=== PATIENT | female | born 1990 | race American Indian/Alaskan Native ===

== ENCOUNTER 2017-12-05 15:49 | Inpatient (IN) | payer MEDICAID, OTHER ==
[2017-12-05] MEDS ORDERED: PEPCID IV ONE (17:56)
[2017-12-05] MEDS ORDERED: REGLAN IV ONE (17:56)
[2017-12-05] MEDS ORDERED: BICITRA PO ONE (17:56)
[2017-12-05] MEDS ORDERED: PITOCin/NS 20 UNIT/1000ML DRIP 20 UNITS/1,000 ML BAG IV SCH ×2 (18:00→22:00)
[2017-12-05] MEDS ORDERED: ANCEF/STERILE WATER 2 GM/20 ML 2 GM/20 ML SYRINGE IV NR (18:00)
[2017-12-05] MEDS ORDERED: LACTATED RINGERS 1,000 ML IV ONE (18:00)
[2017-12-05] MEDS ORDERED: LACTATED RINGERS 1,000 ML IV SCH (18:00)
[2017-12-05 18:05] LABS: Basophils # (Auto) 0.1 K/mm3 (0.0-0.1); Basophils % (Auto) 0.6 % (0.0-1.8); Eosinophils # (Auto) 0.1 K/mm3 (0.0-0.4); Eosinophils % (Auto) 0.7 % (0.0-4.3); Hematocrit 39.3 % (30.3-42.9); Lymphocytes % (Auto) 22.5 % (13.4-35.0); Mean Corpuscular HGB Conc 36 % (30-34); Mean Corpuscular Hemoglobin 33 pg (28-32); Mean Corpuscular Volume 92 fl (79-97); Monocytes # (Auto) 0.8 K/mm3 (0.0-0.8); Monocytes % (Auto) 9.3 % (0.0-7.3); Platelet Count 176 K/mm3 (140-440); Red Blood Count 4.27 M/mm3 (3.65-5.03); Red Cell Distribution Width 15.8 % (13.2-15.2)
--- NOTE | 2017-12-05 18:13 | History and Physical Report ---
History of Present Illness Date of examination: 12/05/17 Chief complaint: Painful contractions History of present illness: 27-year-old at 39+2 weeks presents with painful contractions, she is a [employer]PER[employer] patient. Patient with history of prior desires repeat, she is having painful contractions. Past History Past Medical History: no pertinent history Past Surgical History: section BENEFITS TECHNICIAN History: denies: chlamydia, gonorrhea, hepatitis B, hepatitis C, herpes, HIV , trichomonas Social history: single, full code. denies: smoking, alcohol abuse, IV drug use - Obstetrical History Expected Date of Delivery: 12/10/17 Actual Gestation: 39 Week(s) 2 Day(s) : 3 Para: 1 Medications and Allergies Allergies Allergy/AdvReac Type Severity Reaction Status Date / Time No Known Allergies Allergy Verified 01/28/14 13:19 Home Medications Medication Instructions Recorded Confirmed Last Taken Type No Known Home Medications [No 12/05/17 12/05/17 Unknown History Reported Home Medications] Active Meds: Active Medications Lactated Ringer's (Lactated Ringers) 1,000 mls @ 999 mls/hr IV BOLUS ONE Stop: 12/05/17 19:00 Cefazolin Sodium (Ancef/Sterile Water 2 Gm/20 Ml) 2 gm in 20 mls @ 80 mls/hr IV PREOP NR; Protocol Stop: 12/05/17 23:59 Lactated Ringer's (Lactated Ringers) 1,000 mls @ 2,250 mls/hr IV PREOP MAX Stop: 12/06/17 18:27 Oxytocin/Sodium Chloride (Pitocin/Ns 20 Unit/1000ml Drip) 20 units in 1,000 mls @ 0 mls/hr IV TITR MAX Review of Systems Constitutional: no fever, no chills, no fatigue, no weakness Cardiovascular: no chest pain, no orthopnea, no syncope, no lightheadedness, no shortness of breath, no dyspnea on exertion, no high blood pressure Respiratory: no cough, no cough with sputum, no shortness of breath, no dyspnea on exertion Gastrointestinal: no abdominal pain, no nausea, no vomiting Genitourinary: contractions, no vaginal bleeding, no vaginal discharge, no leakage of fluid - Vital Signs Vital signs: Vital Signs Pulse BP 77 122/69 12/05/17 16:44 12/05/17 16:44 Temp Pulse Resp BP Pulse Ox 77 122/69 12/05/17 16:44 12/05/17 16:44 - Physical Exam Cardiovascular: Regular rate, Normal S1, Normal S2 Lungs: Positive: Clear to auscultation, Normal air movement Abdomen: Positive: normal appearance, soft. Negative: distention, tenderness, guarding, rigidity Genitourinary (Female): Positive: normal external genitalia Uterus: Positive: enlarged (EFW ~ 3600) Adnexa: both: normal Extremities: Positive: normal - Obstetrical FHR: category 1 Cervical Dilatation: 1 (per RN) Results Result Diagrams: 12/05/17 17:47 Abnormal lab results 12/05/17 Range/Units 17:47 MCH 33 H (28-32) pg MCHC 36 H (30-34) % RDW 15.8 H (13.2-15.2) % Sullivan % (Auto) 9.3 H (0.0-7.3) % All other labs normal. Assessment and Plan A: 37-year-old at 39+2 weeks with painful contractions desires repeat C- section -Cat 1 tracing P: -Admit -Obtain routine labs -She has been conented -Proceed with repeat LTCS once OR available - Patient Problems (1) 39 weeks gestation of Current Visit: Yes Status: Acute (2) History of delivery Current Visit: Yes Status: Acute (3) Uterine contractions during Current Visit: Yes Status: Acute
[2017-12-05] MEDS ORDERED: EMLA TP PRN (18:16)
[2017-12-05] MEDS ORDERED: MORPHINE ONE (19:59)
[2017-12-05] MEDS ORDERED: TORADOL ONE (20:26)
[2017-12-05] MEDS ORDERED: VERSED ONE (21:04)
--- NOTE | 2017-12-05 21:34 | Operative Report ---
Operative Report Operative Report: DATE: 12/05/2017 PREOPERATIVE DIAGNOSIS: 27-year-old at 39+2 weeks, prior desires repeat, active labor POSTOP DIAGNOSIS: As above NAME OF PROCEDURE: Repeat low transverse section SURGEON: LUPE BALDWIN MD OUTSIDE MACHINIST HELPER: Shanda ANESTHESIA: Combined spinal epidural EBL: 7 50 mL PATHOLOGY SPECIMEN: None URINE OUTPUT: 75 mL FINDINGS: Female infant in cephalic presentation, impacted, time of delivery 20: 30, infant weight 7 lbs. 2 oz. or 3221 grams, Apgars 8 and 9, normal uterus tubes and ovaries bilaterally, Adhesions DESCRIPTION OF PROCEDURE: She was taken to the operating room where she was prepped and draped in a sterile fashion, she was placed in the dorsal supine position. Pfannenstiel incision was performed through her prior incisional scar which was carried through to underlying rectus fascia which was scored in the midline. The fascial incision was extended laterally with use of Savage scissors, the anterior leaf was then grasped with Kochers forceps elevated dissected sharply and bluntly off the underlying rectus in a similar fashion inferior leaf was grasped elevated dissected sharply and bluntly off the underlying rectus. The rectus was in the midline, good visualization of bladder was noted. A bladder blade was placed in the patient's pelvic cavity ; bladder flap could not be created. A hysterotomy incision was then performed high in the lower segment with clear amniotic fluid noted, hysterotomy incision was extended laterally with the use of fingers manually. in cephalic presentation was delivered in the usual manner; cord was clamped and cut infant was handed over to waiting nursery staff. The placenta was then delivered manually intact, the uterus was exteriorized cleared of all clots and debris. Hysterotomy incision was then closed in a running locked fashion with 0 Vicryl on a CTX; using the same suture we imbricated the initial layer. Interrupted [id number] stitches were used to obtain hemostasis. Uterus was then returned to the patient's pelvic cavity; peritoneal edges were grasped with hemostats and Jazmine's elevated copious irrigation was used to clear the gutters of all clots and debris. Tercel hemostatic agent was then applied to the hysterotomy incision as a means to prevent future bleeding. The peritoneal layer was then closed in a running fashion with 3-0 Vicryl and the rectus was reapproximated with a single [id number] stitch. The fascia was closed in a running fashion with 0 Vicryl and tied in the opposite side. The subcutaneous layer was irrigated and then reapproximated with interrupted [id number] stitches. The skin was closed in a subcuticular manner with 4-0 Vicryl. She tolerated the procedure well lap and instrument counts were correct 2 she did receive 2 g of Ancef prior to incision she is transferred to PACU in stable condition thank you.
[2017-12-05] MEDS ORDERED: MYLICON PO PRN (21:35)
[2017-12-05] MEDS ORDERED: ZOFRAN IV PRN ×2 (21:35→21:41)
[2017-12-05] MEDS ORDERED: ANUCORT-HC PR PRN (21:35)
[2017-12-05] MEDS ORDERED: SENOKOT PO PRN (21:35)
[2017-12-05] MEDS ORDERED: NARCAN 0.4 MG/1 ML IV PRN ×2 (21:35→21:41)
[2017-12-05] MEDS ORDERED: MILK OF MAGNESIA PO PRN (21:35)
[2017-12-05] MEDS ORDERED: LANSINOH TP PRN (21:35)
[2017-12-05] MEDS ORDERED: TYLENOL PO PRN (21:35)
[2017-12-05] MEDS ORDERED: TUCKS PAD TP PRN (21:35)
[2017-12-05] MEDS ORDERED: PHENERGAN PO PRN (21:41)
[2017-12-05] MEDS ORDERED: PHENERGAN PR PRN (21:41)
--- NOTE | 2017-12-05 21:41 | Anesthesia Consultation ---
Anesthesia Consult and Med Hx Date of service: 12/05/17 - Airway Anesthetic Teeth Evaluation: Good ROM Head & Neck: Adequate Mental/Hyoid Distance: Adequate Mallampati Class: Class II Intubation Access Assessment: Good - Pulmonary Exam CTA: Yes - Cardiac Exam Cardiac Exam: No Murmur - Pre-Operative Health Status ASA Pre-Surgery Classification: ASA2 Proposed Anesthetic Plan: Epidural - Pulmonary Hx Asthma: No COPD: No Hx Pneumonia: No - Cardiovascular System Hx Hypertension: No Hx Heart Attack/AMI: No Hx Pacemaker: No - Central Nervous System Hx Seizures: No Hx Psychiatric Problems: No - Endocrine Hx Renal Disease: No Hx End Stage Renal Disease: No Hx Liver Disease: No Hx Hypothyroidism: No Hx Hyperthyroidism: No - Hematic Hx Anemia: No Hx Sickle Cell Disease: No - Other Systems Hx Alcohol Use: No
--- NOTE | 2017-12-05 21:41 | Post Anesthesia Evaluation ---
- Post Anesthesia Evaluation Patient Participated: Yes Airway Patent: Yes Stable Respiratory Function: Yes Nausea/Vomiting: No Temp > 96.8F: Yes Pain Manageable: Yes Adequeate Hydration: Yes Anesthesia Complications: No Block Receding Appropriately: Yes
[2017-12-05] MEDS ORDERED: fentaNYL-BUPIV 2 MCG/ML-0.125% 200 MCG/100 ML BAG EPIDURAL SCH (22:00)
[2017-12-05] MEDS ORDERED: SODIUM CHLORIDE FLUSH SYRINGE 10 ML IV NR ×2 (22:00)
[2017-12-05] MEDS: TORADOL IV PRN (22:16)
[2017-12-06] MEDS: D5LR 1,000 ML IV SCH ×2 (05:19→05:20)
[2017-12-06] MEDS: TORADOL IV PRN (05:20)
[2017-12-06 10:02] LABS: Hematocrit 32.3 % (30.3-42.9); Hemoglobin 11.4 gm/dl (10.1-14.3)
[2017-12-06] MEDS: FEOSOL PO SCH (10:42)
[2017-12-06] MEDS: PRENATAL VITAMIN PO SCH (10:42)
--- NOTE | 2017-12-06 11:52 | Progress Note ---
Assessment and Plan A: /postop day 1 S/P repeat low transverse section. P: Encouraged ambulation today. Subjective - Subjective Date of service: 12/06/17 Principal diagnosis: /postop day 1 S/P repeat low transverse section Interval history: /postop day 1 S/P repeat low transverse section. Doing well. Patient reports small amount of lochia. Ambulating well. + flatus. Patient denies headache, cough, shortness of breath, chest pain, abdominal pain , leg pain, heavy bleeding, or symptoms of depression. Patient reports: appetite normal, voiding normally, pain well controlled, flatus , ambulating normally [place]: doing well Objective - Vital Signs Latest vital signs: Vital Signs Temp Pulse Resp BP BP Pulse Ox 12/06/17 11:42 98.2 F 86 20 106/56 96 12/06/17 07:42 98.0 F 83 20 101/57 97 12/06/17 02:15 97.9 F 84 18 114/63 12/06/17 00:00 98.7 F 67 16 107/68 12/05/17 22:50 79 14 111/52 98 12/05/17 22:49 83 12 111/52 97 12/05/17 22:45 81 26 H 111/52 97 12/05/17 22:40 86 12 122/58 98 12/05/17 22:39 98.3 F 12/05/17 22:35 92 H 11 L 117/60 98 12/05/17 22:30 82 15 117/60 98 12/05/17 22:25 92 H 14 116/68 99 12/05/17 22:20 91 H 15 115/64 98 12/05/17 22:15 88 15 117/73 97 12/05/17 22:10 90 13 111/71 99 12/05/17 22:05 82 15 113/62 99 12/05/17 22:01 88 13 116/51 99 12/05/17 21:55 94 H 11 L 98/71 100 12/05/17 21:51 85 12 112/61 100 12/05/17 21:50 80 14 112/61 99 12/05/17 21:45 78 12 109/55 99 12/05/17 21:40 100 12/05/17 21:39 98.7 F 79 12 106/55 99 12/05/17 21:36 100 12/05/17 21:32 100 12/05/17 20:36 68 129/79 12/05/17 16:44 77 122/69 Intake and Output 12/05/17 12/06/17 12/06/17 23:59 07:59 15:59 Intake Total 1300 2.083 Balance 1300 2.083 Intake: IV 1300 2.083 D5lr 1,000 ml @ 125 mls/ 2.083 hr IV DIRECT MAX Rx#: [id number] Other: Weight 97.069 kg - Exam Breasts: Present: deferred Cardiovascular: Present: Regular rate, Normal S1, Normal S2 Lungs: Present: Clear to auscultation Abdomen: Present: normal appearance, normal bowel sounds. Absent: soft, distention, tenderness, guarding, rigidity Uterus: Present: normal, firm, fundal height below umbilicus. Absent: bogginess , tenderness Incision: Present: normal, dry, intact, dressed - Labs Labs: Abnormal lab results 12/05/17 Range/Units 17:47 MCH 33 H (28-32) pg MCHC 36 H (30-34) % RDW 15.8 H (13.2-15.2) % [place] % (Auto) 9.3 H (0.0-7.3) %
[2017-12-06] MEDS: BENADRYL PO PRN ×2 (12:19→18:50)
[2017-12-06] MEDS ORDERED: NORCO 5/325 PO PRN (15:07)
[2017-12-06] MEDS: PERCOCET 5/325 PO PRN ×2 (15:40→21:41)
[2017-12-06] MEDS ORDERED: BOOSTRIX IM ONE (21:36)
[2017-12-06] MEDS ORDERED: M-M-R II VACCINE SUB-Q ONE (21:36)
[2017-12-07] MEDS: FEOSOL PO SCH (09:09)
[2017-12-07] MEDS: PERCOCET 5/325 PO PRN ×2 (09:10→21:58)
[2017-12-07] MEDS: PRENATAL VITAMIN PO SCH (09:10)
[2017-12-07] MEDS: MOTRIN PO PRN ×2 (09:10→16:35)
--- NOTE | 2017-12-07 18:51 | Progress Note ---
Assessment and Plan A: /postop day 2 S/P LTCS. P: CBC, urinalysis (had mild temp. elevation today). Will consult with MD regarding this pt. Anticipate discharge tomorrow. Subjective - Subjective Date of service: 12/07/17 Principal diagnosis: /postop day 2 S/P repeat low transverse section Interval history: /postop day 2 S/P repeat low transverse section. Doing well. Patient reports small amount of lochia. Ambulating well. + flatus. Tolerating a regular diet. Patient denies headache, cough, shortness of breath, chest pain, abdominal pain , leg pain, heavy bleeding, or symptoms of depression. Patient reports: appetite normal, voiding normally, pain well controlled, flatus , ambulating normally : doing well Objective - Vital Signs Latest vital signs: Vital Signs Temp Pulse Resp BP Pulse Ox 12/07/17 16:35 18 12/07/17 09:10 18 12/07/17 09:00 99.1 F 12/07/17 08:58 100.1 F H 91 H 20 107/56 96 12/07/17 01:00 98.7 F 66 16 102/74 - Exam Breasts: Present: deferred Cardiovascular: Present: Regular rate, Normal S1, Normal S2 Lungs: Present: Clear to auscultation Abdomen: Present: normal appearance, soft, normal bowel sounds. Absent: distention, tenderness, guarding, rigidity Uterus: Present: normal, firm, fundal height below umbilicus. Absent: bogginess , tenderness Extremities: Present: normal. Absent: tenderness, edema Incision: Present: normal, dry, intact, dressed
[2017-12-07 20:59] LABS: Basophils % (Auto) 0.2 % (0.0-1.8); Eosinophils # (Auto) 0.2 K/mm3 (0.0-0.4); Eosinophils % (Auto) 1.5 % (0.0-4.3); Hematocrit 31.8 % (30.3-42.9); Hemoglobin 11.1 gm/dl (10.1-14.3); Lymphocytes # (Auto) 1.8 K/mm3 (1.2-5.4); Lymphocytes % (Auto) 15.8 % (13.4-35.0); Mean Corpuscular HGB Conc 35 % (30-34); Mean Corpuscular Hemoglobin 32 pg (28-32); Mean Corpuscular Volume 92 fl (79-97); Monocytes # (Auto) 1.1 K/mm3 (0.0-0.8); Platelet Count 172 K/mm3 (140-440); Red Blood Count 3.45 M/mm3 (3.65-5.03); Red Cell Distribution Width 15.9 % (13.2-15.2)
[2017-12-07 21:12] LABS: Bacteria,Urine 1+ /HPF (Negative); Bilirubin,Urine NEG (Negative); Blood,Urine MOD (Negative); Color,Urine Yellow (Yellow); Mucus,Urine FEW /HPF
--- NOTE | 2017-12-08 09:44 | Progress Note ---
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 Subjective - Subjective Date of service: 12/08/17 Principal diagnosis: s/p Repeat LTCS, POD 3 Patient reports: appetite normal, voiding normally, pain well controlled, flatus , ambulating normally, no bowel movement : doing well, other (breast and bottle feeding) Objective - Vital Signs Latest vital signs: Vital Signs Temp Pulse Resp BP Pulse Ox 12/08/17 09:30 98.7 F 75 18 104/57 97 12/08/17 00:00 98.6 F 66 16 102/71 12/07/17 22:58 18 12/07/17 21:58 18 12/07/17 16:35 18 Intake and Output 12/07/17 12/08/17 12/08/17 23:59 07:59 15:59 Intake Total 300 Balance 300 Intake: Intake, Free Water 300 - Exam Abdomen: Present: normal appearance, soft Vulva: both: normal Uterus: Present: normal, firm, fundal height at umbilicus Extremities: Present: normal Incision: Present: normal, dry, intact - Labs Labs: Abnormal lab results 12/07/17 Range/Units 20:15 WBC 11.3 H (4.5-11.0) K/mm3 RBC 3.45 L (3.65-5.03) M/mm3 MCHC 35 H (30-34) % RDW 15.9 H (13.2-15.2) % Fleming % (Auto) 10.0 H (0.0-7.3) % Fleming # 1.1 H (0.0-0.8) K/mm3 Seg Neutrophils % 72.5 H (40.0-70.0) % Seg Neutrophils # 8.2 H (1.8-7.7) K/mm3
--- NOTE | 2017-12-08 09:46 | Discharge Summary ---
Providers - Providers Date of Admission: 12/05/17 19:52 Date of discharge: 12/08/17 Attending physician: DARIA PENA MD Primary care physician: DARIA PENA MD Hospitalization Reason for admission: active labor, section, IUP at term Delivery: Procedure: repeat low transverse Episiotomy: none Laceration: none Incision: normal, dry, intact Other procedures: none complications: none Discharge diagnosis: IUP at term delivered [place] baby: female Hospital course: Uncomplicated Condition at discharge: Stable Disposition: DC-01 TO HOME OR SELFCARE - Discharge Diagnoses (1) S/P repeat low transverse Status: Acute Plan - Discharge Medications Prescriptions: Ibuprofen [Motrin 600 MG tab] 600 mg PO Q8H PRN #30 tablet PRN Reason: Pain Multivitamin with Iron [Multivitamins with Iron] 1 each PO DAILY #30 tablet oxyCODONE /ACETAMINOPHEN [Percocet 5/325] 1 tab PO Q6HR PRN #30 tablet PRN Reason: Pain - Provider Discharge Summary Activity: routine, no sex for 6 weeks, no heavy lifting 4 weeks, no strenuous exercise Diet: routine Instructions: routine Additional instructions: [] Smoking cessation referral if applicable(refer to patient education folder for contact #) [] Refer to [facility] Booklet Call your doctor immediately for: * Fever > 100.5 * Heavy vaginal bleeding ( >1 pad per hour) * Severe persistent headache * Shortness of breath * Reddened, hot, painful area to leg or breast * Drainage or odor from incision. * Keep incision clean and dry at all times and follow doctor's instructions regarding bathing/showering - Follow up plan Follow up: DARIA PENA MD [Primary Care Provider] - 14 Days (Follow up at [facility] PRODUCT DEVELOPMENT ENGINE[facility] in 2 weeks for incision check)
[2017-12-08] MEDS: PRENATAL VITAMIN PO SCH (10:05)
[2017-12-08] MEDS: MOTRIN PO PRN (10:05)
[2017-12-08] MEDS: FEOSOL PO SCH (10:05)
[2017-12-08 13:59] VITALS: BP 120/71
== END 2017-12-08 11:50 | disposition home or self-care (01) | DRG 766 ==
LOC: TRG 15:49 → APU 19:52 → OB 23:39
PROVIDERS: ADMIT Obstetrics & Gynecology; ATTEND Obstetrics & Gynecology
PROC: 10D00Z1 Extraction of Products of Conception, Low, Open Approach (ICD-10-PCS; principal; 2017-12-08)
DX: O34.211 Maternal care for low transverse scar from previous cesarean delivery (principal); Z3A.39 39 weeks gestation of pregnancy; Z37.0 Single live birth
CPT/HCPCS: 36415; 81001; 85014; 85018; 85025; 86850; 86900; 86901; A6250; C9250; J0690; J1885; J2250; J2270; J2590; J2765; J7120; J7121